=== PATIENT | male | born 1945 | race Caucasian/White ===

== ENCOUNTER 2017-02-02 19:21 | Emergency (ER) | payer MEDICARE, OTHER ==
[2017-02-02 20:00] LABS: BASOPHIL 0.5 % (0-2); EOSINOPHIL 2.5 % (0-7); HCT 46.3 % (42.0-52.0); HGB 15.8 g/dl (13.2-18.0); LYMPHOCYTE 27.4 % (15-48); MCH 29.8 pg (25.0-31.0); MCHC 34.1 g/dL (32.0-36.0); MCV 87.4 fL (78.0-100.0); MONOCYTE 9.7 % (0-12); MPV 9.2 fL (6.0-9.5); NEUTROPHIL 59.9 % (41-80); PLT 234 K/uL (150-400); RDW 13.4 % (11.5-14.0); WBC 11.1 K/uL (4.0-10.5)
[2017-02-02 20:15] LABS: ALBUMIN 4.6 g/dL (3.4-4.8); BILIRUBIN - TOTAL 0.4 mg/dL (0.1-1.0); CREATININE 1.8 mg/dL (0.7-1.2); GLOBULIN (CALCULATION) 2.6 g/dL (2.2-4.2); POTASSIUM 4.1 mmol/L (3.5-5.1); TOTAL PROTEIN 7.2 g/dL (6.4-8.3)
== END 2017-02-02 21:44 | disposition home or self-care (01) ==
LOC: FER 19:21
PROVIDERS: Emergency Medicine
DX: I10 Essential (primary) hypertension (principal); J44.9 Chronic obstructive pulmonary disease, unspecified; Z95.2 Presence of prosthetic heart valve
CPT/HCPCS: 36415; 80053; 84484; 85025; 93005